=== PATIENT | female | born 1960 | race Caucasian/White ===

== ENCOUNTER 2017-09-04 23:34 | Emergency (ER) | payer OTHER ==
[~2017-09-04] VITALS: Ht 170.2 cm; Wt 65.6 kg
[2017-09-04 23:39] VITALS: TEMP 36.3; Ht 170.2 cm; Wt 65.6 kg
[2017-09-04] MEDS ORDERED: SODIUM CHLORIDE 0.9% 1000ML 1,000 ML IV STA (23:50)
[2017-09-05] MEDS ORDERED: ONDANSETRON INJ 2 MG/ML 2 ML VIAL IV STA (00:06)
[2017-09-05] MEDS ORDERED: FENTANYL CITRATE INJ 50 MCG/1 ML 2 ML VIAL IV PRN (00:15)
[2017-09-05 00:27] LABS: BASO % 0.4 %; BASO ABS # 0.02 K/uL (0-0.2); EOS % 1.5 %; EOS ABS # 0.08 K/uL (0-0.5); HEMATOCRIT 38.8 % (37-47); HEMOGLOBIN 13.3 g/dL (12.0-16.0); IG# 0.01 K/uL (0.00-0.02); LYMPH % 29.1 %; LYMPH ABS # 1.59 K/uL (1.2-3.4); MEAN CELL VOLUME 83.6 fL (80-100); MEAN CORPUSCULAR HEMOGLOBIN 28.7 pg (25-34); MEAN CORPUSCULAR HGB CONC 34.3 g/dl (32-36); MEAN PLATELET VOLUME 10.4 fL (7.4-10.4); MONO % 7.1 %; MONO ABS # 0.39 K/uL (0.11-0.59); NEUT % 61.7 %; NEUT ABS # 3.37 K/uL (1.4-6.5); PLATELET COUNT 136 K/uL (130-400); RED CELL DISTRIBUTION WIDTH CV 13.2 % (11.5-14.5); WHITE BLOOD COUNT 5.46 K/uL (4.8-10.8)
[2017-09-05 00:43] LABS: ALBUMIN 3.9 gm/dl (3.4-5.0); ALT/SGPT 27 U/L (12-78); AST/SGOT 22 U/L (15-37); BLOOD UREA NITROGEN 15 mg/dl (7-18); CALCIUM 8.8 mg/dl (8.5-10.1); CARBON DIOXIDE 29 mmol/L (21-32); CREATININE 0.85 mg/dl (0.60-1.20); GLUCOSE 109 mg/dl (70-99); POTASSIUM 3.4 mmol/L (3.5-5.1); SODIUM 139 mmol/L (136-145)
[2017-09-05 00:46] LABS: ALKALINE PHOSPHATASE 54 U/L (45-117); TOTAL PROTEIN 6.8 gm/dl (6.4-8.2)
[2017-09-05] MEDS ORDERED: B-COTAB18 PO (00:46)
[2017-09-05] MEDS ORDERED: ASCO1CAP3 (00:46)
[2017-09-05] MEDS ORDERED: LYSI100010 PO (00:46)
[2017-09-05] MEDS ORDERED: MULTCAP7 PO (00:46)
[2017-09-05] MEDS ORDERED: ASCA500 PO (00:46)
[2017-09-05] MEDS ORDERED: BIOT1CAP8 PO (00:46)
[2017-09-05] MEDS ORDERED: OXYC1TAB3 PO (01:21)
[2017-09-05] MEDS ORDERED: ONDANSETRON HOME PACK 4MG OD TAB PO ONE (01:30)
[2017-09-05] MEDS ORDERED: OXYCODONE IR HOME PACK PO ONE (01:30)
[2017-09-05 01:57] VITALS: BP 117/55; PULSE 57; O2SAT 99
--- NOTE | 2017-09-05 03:22 | EMERGENCY ROOM VISIT NOTE ---
History Report prepared by Beryl: Stephani Thomas Under the Supervision of: Dr. Escobar Daniels M.D. First contact with patient: 23:50 Chief Complaint: FALL Stated Complaint: FELL ON LEFT WRIST History of Present Illness The patient is a 57 year old female who presents to the Emergency Room with complaints of an episode of a fall occurring prior to arrival. The patient states that she tripped and caught herself with her left wrist. She reports that she instantly had extreme pain. She reports that she started having nausea , chills, and felt like she was going to pass out. The patient currently rates her pain as an 8/10 in severity. She reports that the pain is worse with movement. The patient notes mild rhinorrhea. The patient denies hitting her head and any blood. Pt denies LOC, headache, fevers, diaphoresis, visual changes , neck pain, chest pain, breathing difficulties, vomiting, abdominal pain, back pain, melena, hematochezia, urinary symptoms, numbness, weakness, lymphadenopathy, rash, or other complaints. Source of History: patient Onset: prior to arrival Position: other (global) Symptom Intensity: 8/10 Timing: other (episode) Modifying Factors (Worsening): movement Associated Symptoms: + chills, + nausea Note: The patient complains of feeling like she was going to pass out and rhinorrhea. Review of Systems See HPI for pertinent positives and negatives. A total of ten systems were reviewed and were otherwise negative. Past Medical & Surgical Medical Problems: (1) No Known Active Medical Problems Family History No pertinent family history Social History Smoking Status: Never Smoker Marital Status: Housing Status: lives with family Current/Historical Medications Scheduled Ascorbic Acid (Vitamin C), 500 MG PO DAILY B-Complex Vitamins (Vitamin B Complex), 1 DOSE PO DAILY Biotin (Biotin), 1 DOSE PO DAILY Lysine Hcl (Lysine), 1 TAB PO 2XWK Multiple Vitamins W/ Minerals (Eye Vitamins), 1 DOSE PO DAILY Scheduled PRN Oxycodone Ir (Roxicodone Ir), 1-2 TAB PO Q4H PRN for Pain Miscellaneous Medications Ascorbic Acid (Vitamin C) Allergies Coded Allergies: No Known Allergies (Unverified , 09/05/17) Physical Exam Vital Signs Date Time Temp Pulse Resp B/P (MAP) Pulse Ox O2 Delivery O2 Flow Rate FiO2 09/05/17 01:57 57 16 117/55 99 09/05/17 01:26 57 16 117/55 99 Room Air 09/05/17 00:30 54 16 102/50 95 09/04/17 23:39 36.3 53 20 89/53 98 Room Air Physical Exam GENERAL: Awake, alert, uncomfortable-appearing, in no distress HENT: Normocephalic, atraumatic. Oropharynx unremarkable. EYES: Normal conjunctiva. Sclera non-icteric. NECK: Supple. No nuchal rigidity. FROM. No JVD. RESPIRATORY: Clear to auscultation. CARDIAC: Regular rate, normal rhythm. Extremities warm and well perfused. Pulses equal. ABDOMEN: Soft, non-distended. No tenderness to palpation. No rebound or guarding. No masses. RECTAL: Deferred. MUSCULOSKELETAL: Chest examination reveals no tenderness. The back is symmetrical on inspection without obvious abnormality. There is no CVA tenderness to palpation. No joint edema. Snuff box joint tenderness to wrist joint. Limited ROM of wrist joint. No open wounds. LOWER EXTREMITIES: Calves are equal size bilaterally and non-tender. No edema. No discoloration. NEURO: Normal sensorium. No sensory or motor deficits noted. SKIN: No rash or jaundice noted. Medical Decision & Procedures ER Provider Diagnostic Interpretation: LEFT WRIST 3 VIEW: The results were interpreted by me. Distal radius fracture. Mild dorsal angulation. No discoloration. There is intraarticular involvement. Laboratory Results 09/05/17 00:15 Red Blood Count 4.64, Mean Corpuscular Volume 83.6, Mean Corpuscular Hemoglobin 28.7, Mean Corpuscular Hemoglobin Concent 34.3, Mean Platelet Volume 10.4, Neutrophils (%) (Auto) 61.7, Lymphocytes (%) (Auto) 29.1, Monocytes (%) (Auto) 7.1, Eosinophils (%) (Auto) 1.5, Basophils (%) (Auto) 0.4, Neutrophils # (Auto) 3.37, Lymphocytes # (Auto) 1.59, Monocytes # (Auto) 0.39, Eosinophils # (Auto) 0.08, Basophils # (Auto) 0.02 09/05/17 00:15 Test 09/05/17 00:15 White Blood Count 5.46 K/uL (4.8-10.8) Red Blood Count 4.64 M/uL (4.2-5.4) Hemoglobin 13.3 g/dL (12.0-16.0) Hematocrit 38.8 % (37-47) Mean Corpuscular Volume 83.6 fL (80-100) Mean Corpuscular Hemoglobin 28.7 pg (25-34) Mean Corpuscular Hemoglobin Concent 34.3 g/dl (32-36) Platelet Count 136 K/uL (130-400) Mean Platelet Volume 10.4 fL (7.4-10.4) Neutrophils (%) (Auto) 61.7 % Lymphocytes (%) (Auto) 29.1 % Monocytes (%) (Auto) 7.1 % Eosinophils (%) (Auto) 1.5 % Basophils (%) (Auto) 0.4 % Neutrophils # (Auto) 3.37 K/uL (1.4-6.5) Lymphocytes # (Auto) 1.59 K/uL (1.2-3.4) Monocytes # (Auto) 0.39 K/uL (0.11-0.59) Eosinophils # (Auto) 0.08 K/uL (0-0.5) Basophils # (Auto) 0.02 K/uL (0-0.2) RDW Standard Deviation 40.0 fL (36.4-46.3) RDW Coefficient of Variation 13.2 % (11.5-14.5) Immature Granulocyte % (Auto) 0.2 % Immature Granulocyte # (Auto) 0.01 K/uL (0.00-0.02) Anion Gap 6.0 mmol/L (3-11) Est Creatinine Clear Calc Drug Dose 71.0 ml/min Estimated GFR () 88.2 Estimated GFR (Non- 76.1 BUN/Creatinine Ratio 18.2 (10-20) Calcium Level 8.8 mg/dl (8.5-10.1) Total Bilirubin 0.3 mg/dl (0.2-1) Direct Bilirubin < 0.1 mg/dl (0-0.2) Aspartate Amino Transf (AST/SGOT) 22 U/L (15-37) Alanine Aminotransferase (ALT/SGPT) 27 U/L (12-78) Alkaline Phosphatase 54 U/L (45-117) Total Protein 6.8 gm/dl (6.4-8.2) Albumin 3.9 gm/dl (3.4-5.0) Laboratory results reviewed by me Medications Administered Medications (Trade) Dose Ordered Sig/Sharyn Route Start Time Stop Time Status Last Admin Dose Admin Sodium Chloride 1,000 ml @ 999 mls/hr Q1H1M STAT IV 09/04/17 23:50 09/05/17 00:50 DC 09/05/17 00:35 999 MLS/HR Fentanyl Citrate (Fentanyl Inj) 50 mcg Q15M PRN IV 09/05/17 00:15 09/19/17 00:14 09/05/17 00:30 50 MCG Ondansetron HCl (Zofran Inj) 4 mg NOW STAT IV 09/05/17 00:06 09/05/17 00:08 DC 09/05/17 00:30 4 MG Ondansetron HCl (ZOFRAN ODT 4MG Home Pack) 1 homepack UD ONCE PO 09/05/17 01:30 09/05/17 01:31 DC 09/05/17 01:53 1 HOMEPACK Oxycodone HCl (Roxicodone Immediate Rel 5MG Home Pack) 1 homepack UD ONCE PO 09/05/17 01:30 09/05/17 01:31 DC 09/05/17 01:53 1 HOMEPACK Procedure Splinting Indication: Fracture Verbal consent obtained. Risks and benefits were explained with the usual customary discussion. The injured extremity was identified. The patient was prepped and measured for the placement of a Volar ortho-glass splint. Splint applied in the standard fashion over a layer of webril and secured using an elastic bandage. Set into a position of function. Normal neurovascular status after placement verified by me. The patient tolerated the procedure well and the care of the splint was discussed with the patient/family. No complications. ED Course 2350: Ordered NSS 1000 ml @ 999 mls/hr IV. 2356: The patient was evaluated in room C2B. A complete history and physical exam was performed. 0006: Ordered Zofran Inj 4 mg IV. 0015: Ordered Fentanyl Citrate 50 mcg PRN IV Pain. 0036: I reevaluated the patient and she is doing okay. 0102: I reevaluated the patient and she is feeling better. She is being splinted at this time. 0130: Ordered Oxycodone HCl 1 homepack PO, Ondansetron HCl 1 homepack PO. 0148: I reevaluated the patient. The patient was able to stand and is not dizzy or nauseous from it. Discussed results and discharge instructions: She verbalized understanding and agreement. The patient is ready for discharge. Medical Decision Prior records reviewed and summarized above. Triage Nursing notes reviewed and agree them. Additional history obtained from family. The patient's history was concerning for traumatic injury. The patient had some lightheadedness and nausea. I suspect this was a vagal response from her severe left wrist pain. She did not strike her head. She had no symptoms prior to falling. Differential diagnosis: Etiologies such as fracture, dislocation, neurovascular compromise, compartment syndrome, soft tissue injury, as well as others were entertained. Physical examination: Consistent with an isolated left wrist injury. ER treatment provided: Normal saline bolus Zofran IV fentanyl On reassessment the patient felt better Ortho-Glass splint Diagnostics interpreted by me: The labs revealed an unremarkable CBC, coags, and chemistry panel. Imaging studies: Xrays as above. The patient has a nondisplaced minimally angulated intra-articular distal radius fracture. She is neurovascular intact. This is not open. She will need orthopedic follow-up. She requested information for [facility] for follow-up. This was provided. The patient will call in a few hours to the clinic to set up an appointment. By the evaluation outlined above emergent etiologies such as open fracture, dislocation, neurovascular compromise, compartment syndrome, infections, intracranial injury, cardiac sources, as well as others were deemed relatively unlikely. The patient and family were informed about the findings as listed above. All questions were answered and they were very pleased with the treatment. Return instructions were outlined and the patient was discharged in stable condition. Prescription management: Oxy IR Referral: The patient was referred to [facility] for follow-up care. Medication Reconcilliation Current Medication List: was personally reviewed by me Blood Pressure Screening Patient's blood pressure: Normal blood pressure Blood pressure disposition: Did not require urgent referral Impression Primary Impression: Left wrist fracture Additional Impression: Nausea Scribe Attestation The scribe's documentation has been prepared under my direction and personally reviewed by me in its entirety. I confirm that the note above accurately reflects all work, treatment, procedures, and medical decision making performed by me. Departure Information Dispostion Home / Self-Care Prescriptions Oxycodone Ir (Roxicodone Ir) 5 Mg Tab 1-2 TAB PO Q4H Y for Pain, #15 TAB Prov: Escobar Daniels MD 09/05/17 Referrals Hermila Biggs DO (PCP) Forms HOME CARE DOCUMENTATION FORM, IMPORTANT VISIT INFORMATION Patient Instructions My [facility] Additional Instructions ORTHOPEDIC INSTRUCTIONS: DO NOT drive, drink alcohol, operate machinery, or perform dangerous activities today. You were given medications in the ER that can affect your ability to safely function or operate a vehicle. Zofran 4 mg oral dissolving tablets: take one tablet and allow it to melt in your mouth every 4 hours as needed for nausea. Oxycodone (OxyIR) 5mg: Take 1-2 pills every four hours for breakthrough pain. Avoid alcohol, operating machinery or dangerous equipment, working on ladders or roofs, DRIVING, or situations where being under the influence may be dangerous. It is recommended to use an jjbv-sxn-tjydkle stool softener such as Colace, 100mg twice daily while taking this medication to avoid constipation. Ibuprofen(Motrin, Advil) may be used for fever or pain. Use 600mg every six hours as needed. Take with food. Avoid using more than 2400mg in a 24 hour period. Do not use 2400mg per day for more than three consecutive days without physician direction. Prolonged inappropriate use can lead to stomach upset or ulcers. (AND/OR) Acetaminophen(Tylenol) may be used for fever or pain. Use 1000mg every six hours as needed. Avoid using more than 4000mg in a 24 hour period. Ice compresses for 20 minutes at a time four times daily for 2-3 days. Use the sling as instructed. Remove your arm from the sling 4-6 times a day and move all the joints around to keep them loose. Rest and elevate your injury. Do not get the splint wet. If your splint feels excessively tight, you have worsening pain, develop numbness or tingling, or your digits appear blue, loosen the guille wrap. Then reapply the guille wrap gently without removing the splint. If your symptoms are not quickly relieved return to the ER for re- evaluation. Return to the ER immediately for any numbness, tingling, severe pain, extreme swelling in the extremity or as needed. Call [facility], [phone], later this morning to arrange follow up for your injury. Problem Qualifiers
--- NOTE | 2017-09-05 06:39 | DIAGNOSTIC IMAGING REPORT ---
L WRIST MIN 3 VIEWS ROUTINE CLINICAL HISTORY: left wrist pain TRAUMA COMPARISON: None. DISCUSSION: There is a comminuted intra-articular fracture of the distal radius. This results in a dorsal tilt of the radial articular surface of 14 degrees. IMPRESSION: Acute comminuted intra-articular fracture of the distal radius. Electronically signed by: Carlos Harp M.D. 09/05/2017 6:37 AM Dictated Date/Time: 09/05/2017 6:37 AM
== END 2017-09-05 01:58 | disposition home or self-care (01) ==
LOC: C.EDB 23:35 → C.EDC 09-05 01:58
DX: S52.502A Unspecified fracture of the lower end of left radius, initial encounter for closed fracture (principal); W01.0XXA Fall on same level from slipping, tripping and stumbling without subsequent striking against object, initial encounter; Y92.9 Unspecified place or not applicable; R11.0 Nausea; Z79.899 Other long term (current) drug therapy

== ENCOUNTER → 2017-09-11 | Outpatient (CLI) | payer OTHER ==
[~2017-09-11] MED LIST: ASCA500 PO; ASCO1CAP3; B-COTAB18 PO; BIOT1CAP8 PO; LYSI100010 PO; MULTCAP7 PO; OXYC1TAB3 PO
== END | disposition home or self-care (01) ==
LOC: C.LAB1850 08:58
PROVIDERS: ATTEND Physical Medicine & Rehabilitation Sports Medicine
DX: S52.532D Colles' fracture of left radius, subsequent encounter for closed fracture with routine healing (principal); X58.XXXD Exposure to other specified factors, subsequent encounter

== ENCOUNTER → 2017-09-11 | Outpatient (CLI) | payer OTHER | END | disposition home or self-care (01) | LOC: C.RDSM 13:42 | PROVIDERS: ATTEND Physical Medicine & Rehabilitation Sports Medicine | DX: S52.532A Colles' fracture of left radius, initial encounter for closed fracture (principal); X58.XXXA Exposure to other specified factors, initial encounter ==

== ENCOUNTER → 2017-09-19 | Outpatient (CLI) | payer OTHER | END | disposition home or self-care (01) | LOC: C.RDSM 14:52 | PROVIDERS: ATTEND Physical Medicine & Rehabilitation Sports Medicine | DX: S52.532A Colles' fracture of left radius, initial encounter for closed fracture (principal); X58.XXXA Exposure to other specified factors, initial encounter ==

== ENCOUNTER → 2017-09-26 | Outpatient (CLI) | payer OTHER | END | disposition home or self-care (01) | LOC: C.RDSM 14:05 | PROVIDERS: ATTEND Physical Medicine & Rehabilitation Sports Medicine | DX: S52.532D Colles' fracture of left radius, subsequent encounter for closed fracture with routine healing (principal); X58.XXXD Exposure to other specified factors, subsequent encounter ==

== ENCOUNTER → 2017-10-24 | Outpatient (CLI) | payer OTHER | END | disposition home or self-care (01) | LOC: C.LAB1850 15:12 | PROVIDERS: ATTEND Physical Medicine & Rehabilitation Sports Medicine | DX: E55.9 Vitamin D deficiency, unspecified (principal); S52.532D Colles' fracture of left radius, subsequent encounter for closed fracture with routine healing; X58.XXXD Exposure to other specified factors, subsequent encounter ==

== ENCOUNTER → 2017-10-24 | Outpatient (CLI) | payer OTHER | END | disposition home or self-care (01) | LOC: C.RDSM 19:21 | PROVIDERS: ATTEND Physical Medicine & Rehabilitation Sports Medicine | DX: S52.532D Colles' fracture of left radius, subsequent encounter for closed fracture with routine healing (principal); X58.XXXD Exposure to other specified factors, subsequent encounter ==